=== PATIENT | male | born 2000 | race Hispanic/Latino ===

== ENCOUNTER 2025-04-11 10:58 | Emergency (ER) | payer OTHER, SELFPAY ==
[2025-04-11 11:21] VITALS: BP 127/72; PULSE 65; RESP 16; TEMP 36.8; O2SAT 100
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
== END 2025-04-11 11:52 | disposition home or self-care (01) ==
PROVIDERS: Emergency Provider Nurse Practitioner Family
DX: S09.90XA Unspecified injury of head, initial encounter (principal); Y04.8XXA Assault by other bodily force, initial encounter
CPT/HCPCS: 99212; G0463